=== PATIENT | female | born 1985 | race Caucasian/White ===

== ENCOUNTER → 2024-04-18 | Outpatient (CLI) | payer OTHER ==
[2024-04-18 16:41] LABS: BASO # 0.05 K/mm3 (0.02-0.10); EOS # 0.11 K/mm3 (0.04-0.40); EOS % 1.6 % (1.0-5.0); HEMATOCRIT 42.3 % (37.0-47.0); HEMOGLOBIN 14.4 g/dL (12.5-16.0); LYMPH# 2.17 K/mm3 (1.50-4.00); MEAN CELL VOLUME 93 fl (78-100); MEAN CORPUSCULAR HEMOGLOBIN 32 pg (27-31); MEAN CORPUSCULAR HGB CONC 34 g/dL (33-37); MEAN PLATELET VOLUME 10.3 fl (7.4-10.4); MONO # 0.65 K/mm3 (0.20-0.80); NEU # 3.91 K/mm3 (1.40-6.50); PLATELET COUNT 287 K/mm3 (130-400); RED BLOOD COUNT 4.57 M/mm3 (4.10-5.30); RED CELL DISTRIBUTION WIDTH 12.1 % (11.5-14.5); WHITE BLOOD COUNT 6.9 K/mm3 (4.8-10.8)
[2024-04-18 16:46] LABS: ALBUMIN 4.7 g/dL (3.5-5.0)
[2024-04-18 16:47] LABS: CALCIUM 9.9 mg/dL (8.3-10.5)
[2024-04-18 16:48] LABS: TOTAL PROTEIN 7.8 g/dL (6.4-8.3)
[2024-04-18 17:29] LABS: TOTAL BILIRUBIN 0.5 mg/dL (0.2-1.2)
[2024-04-18 23:52] LABS: ESTRADIOL 43 pg/mL (()); LUTENIZING HORMONE 3.9 mIU/mL (()); PROLACTIN AMS 101.6 ng/mL (5.2-26.5); T3 FREE 2.7 pg/mL (1.7-3.7)
[2024-04-19 20:57] LABS: ANA SCREEN with REFLEX Negative (Negative)
== END ==
LOC: LAB 16:01
PROVIDERS: Family Medicine
DX: M35.9 Systemic involvement of connective tissue, unspecified (principal); E03.9 Hypothyroidism, unspecified; E78.5 Hyperlipidemia, unspecified; N91.1 Secondary amenorrhea; R73.9 Hyperglycemia, unspecified